=== PATIENT | female | born 1995 | race Caucasian/White ===

== ENCOUNTER 2017-11-02 11:39 | Emergency (ER) | payer OTHER, BC ==
--- NOTE | 2017-11-02 12:15 | EDM.PDOC ---
ED HPI GENERAL MEDICAL PROBLEM - General Chief Complaint: Upper Extremity Injury/Pain Stated Complaint: DROPPED WEIGHT ON RIGHT HAND Time Seen by Provider: 11/02/17 12:10 Source of Information: Reports: Patient History Limitations: Reports: No Limitations - History of Present Illness INITIAL COMMENTS - FREE TEXT/NARRATIVE: Patient was using a weight set that suspends weights in air on a cable. This became stuck and when she was addressing this with a employee, they withdrew the pin and caused the weight to fall on her right hand. It has a small cut not requiring sutures or steri-strips. She has full movement and blood flow to hand. Onset: Today, Sudden Duration: Intermittent Location: Reports: Upper Extremity, Right Quality: Reports: Ache, Throbbing Severity: Mild Improves with: Reports: Cold Therapy Worsens with: Reports: Movement Associated Symptoms: Reports: No Other Symptoms Treatments [employer]: Reports: Cold Therapy Right Hand Pain Score (Numeric/FACES): 5 - Related Data Allergies Allergy/AdvReac Type Severity Reaction Status Date / Time enoxaparin [From Lovenox] Allergy Rash Verified 11/02/17 11:49 Home Meds: Home Meds . [No Known Home Meds] 11/02/17 [History] Past Medical History Hematologic History: Reports: Other (See Below) Other Hematologic History: Blood clots 2017 Social & Family History - Tobacco Use Smoking Status *Q: Never Smoker - Alcohol Use Days Per Week of Alcohol Use: 1 Number of Drinks Per Day: 1 Total Drinks Per Week: 1 - Recreational Drug Use Recreational Drug Use: No Review of Systems - Review of Systems Review Of Systems: See Below Constitutional: Reports: No Symptoms Eyes: Reports: No Symptoms Ears: Reports: No Symptoms Nose: Reports: No Symptoms Mouth/Throat: Reports: No Symptoms Respiratory: Reports: No Symptoms Cardiovascular: Reports: No Symptoms GI/Abdominal: Reports: No Symptoms Genitourinary: Reports: No Symptoms Musculoskeletal: Reports: Hand Pain Skin: Reports: Wound (hand pain with small laceration of 2 cm) Neurological: Reports: No Symptoms Psychiatric: Reports: No Symptoms ED EXAM, GENERAL - Physical Exam Exam: See Below Exam Limited By: No Limitations General Appearance: Alert, WD/WN, No Apparent Distress Extremities: Normal Inspection, Normal Range of Motion, Non-Tender, Normal Capillary Refill, No Pedal Edema Neurological: Alert, Oriented, CN II-XII Intact, Normal Cognition, Normal Gait, Normal Reflexes, No Motor/Sensory Deficits Psychiatric: Normal Affect, Normal Mood Skin Exam: Wound/Incision (2 cm laceration, superficial) Course - Vital Signs Last Recorded V/S: Last Vital Signs Temp 36.7 C 11/02/17 11:52 Pulse 71 11/02/17 11:52 Resp 16 11/02/17 11:52 BP 125/77 11/02/17 11:52 Pulse Ox 100 11/02/17 11:52 - Orders/Labs/Meds Orders: Active Orders 24 hr Category Date Time Status Vaccines to be Administered [RC] PER UNIT ROUTINE Care 11/02/17 12:23 Ordered Hand 2V Rt [CR] Stat Exams 11/02/17 11:55 Ordered Meds: Medications Discontinued Medications Generic Name Dose Route Start Last Admin Trade Name Freq PRN Reason Stop Dose Admin Diphtheria/Tetanus/Acell Pertussis 0.5 ml 11/02/17 12:22 Adacel IM 11/02/17 12:23 .ONCE ONE - Radiology Interpretation Free Text/Narrative:: x-ray does not appear to show acute fracture. Will review radiologist interpretation and contact patient with any additional information if needed. Departure - Departure Time of Disposition: 12:28 Disposition: Home, Self-Care 01 Condition: Good Clinical Impression: Crushed hand and fingers - Discharge Information Instructions: Crush Injury of the Hand, [id number] Referrals: PCP,None [Primary Care Provider] - Forms: ED Department Discharge Additional Instructions: Please alternate ibuprofen and tylenol for pain and swelling. Typical side effects of the tetanus vaccine is site tenderness. Use ice and elevate your hand as well. If your swelling increases and your ring is beginning to compromise the circulation to that finger, please return so that it can be removed. If you have any questions or concerns please call us. Follow up with your primary as needed for symptom management. - Problem List & Annotations (1) Crushed hand and fingers SNOMED Code(s): 68261821 Code(s): S67.20XA - CRUSHING INJURY OF UNSPECIFIED HAND, INITIAL ENCOUNTER Status: Acute Priority: Low Current Visit: Yes Qualifiers: Encounter type: initial encounter Laterality: right Qualified Code(s): S67.21XA - Crushing injury of right hand, initial encounter - Problem List Review Problem List Initiated/Reviewed/Updated: Yes - My Orders Last 24 Hours: My Active Orders 11/02/17 11:55 Hand 2V Rt [CR] Stat 11/02/17 12:23 Vaccines to be Administered [RC] PER UNIT ROUTINE - Assessment/Plan Last 24 Hours: My Active Orders 11/02/17 11:55 Hand 2V Rt [CR] Stat 11/02/17 12:23 Vaccines to be Administered [RC] PER UNIT ROUTINE Assessment:: right crush injury of hand Plan: Please alternate ibuprofen and tylenol for pain and swelling. Typical side effects of the tetanus vaccine is site tenderness. Use ice and elevate your hand as well. If your swelling increases and your ring is beginning to compromise the circulation to that finger, please return so that it can be removed. If you have any questions or concerns please call us. Follow up with your primary as needed for symptom management.
[2017-11-02] MEDS ORDERED: Diphtheria,Pertussis(Acell),Tetanus Vaccine 0.5 ML Syringe IM ONE (12:22)
== END 2017-11-02 12:40 | disposition home or self-care (01) ==
LOC: VM.ED 11:39
DX: S67.21XA Crushing injury of right hand, initial encounter (principal); W20.8XXA Other cause of strike by thrown, projected or falling object, initial encounter; Z23 Encounter for immunization; Z88.8 Allergy status to other drugs, medicaments and biological substances
CPT/HCPCS: 73130-RT; 90471; 90715; 99283